=== PATIENT | female | born 1940 | race Caucasian/White ===

== ENCOUNTER 2016-07-14 15:04 | Emergency (ER) | payer MEDICARE, BC ==
[2016-07-14] MEDS ORDERED: DIATRIZOATE MEGLU/DIATRIZO SOD 30 ML BTL ONE (15:48)
[2016-07-14 16:04] LABS: Hemoglobin 14.1 gm/dL (12.5-16.0); Mean Corpuscular Hemoglobin 29.2 pg (27-31); Mean Corpuscular Hgb Conc 32.8 g/dl (32-36); Mean Platelet Volume 9.7 fl (6.0-9.5); Neutrophil # 3.6 K/mm3 (1.3-6.0); Platelet Count 225 K/mm3 (150-450); Red Blood Count 4.83 M/mm3 (4.2-5.4); Red Cell Distribution Width 13.1 % (11.5-14.0); White Blood Count 6.9 K/mm3 (4.0-10.5)
[2016-07-14] MEDS: DIATRIZOATE MEGLU/DIATRIZO SOD 30 ML BTL PO ONE (16:10)
--- OUTSIDE RECORDS SUMMARY | 2016-07-14 16:11 | XMS REPORT | Continuity of Care Document ---
:1940 Author Organization [facility] ([facility]) Address [place] [address] Phone [phone] Care Team Providers Name Role Phone Marga Fontana Primary Care Provider [phone] Source Comments This disclosure is being made pursuant to the Care Everywhere program, applicable federal and state laws, and may not contain all informaitonavailable regarding this patient.[facility] ([facility]) Active Allergies and Adverse Reactions Allergen Noted Date Severity Reactions Comments Sulfadoxine Blisters Current Medications Prescription Sig. Disp. Refills Start Date End Date Status levothyroxine 100 mcg tablet Take 100 mcg by Active mouth every morning before breakfast. HYDROCHLOROTHIAZIDE PO Take by mouth. Active Active Problems No known active problems Social History Tobacco Use Types Packs/Day Years Used Date Never Smoker Last Filed Vital Signs Vital Sign Reading Time Taken Blood Pressure 128/86 09/05/2012 1:35 PM CDT Pulse 92 09/05/2012 1:35 PM CDT Temperature 36.7 C (98.1 F) 09/05/2012 1:35 PM CDT Respiratory Rate 16 09/05/2012 1:35 PM CDT Height - - Weight 96.616 kg (213 lb) 09/05/2012 1:35 PM CDT Body Mass Index - - Oxygen Saturation - - Plan of Care Health Maintenance Due Date Last Done Comments Hepatitis B Vaccine (1 of 3 - Primary Series) 1940 Tdap Vaccine 1949 Lipid Disorder Screening 1956 Td Vaccine 1956 Mammogram 1978 Colonoscopy 05/22/1988 Zoster Vaccine 1998 Osteoporosis Screening (DXA Bone Density) 05/24/2003 Pneumococcal Vaccine (1 of 2 - PCV13) 05/24/2003 Influenza Vaccine: Seasonal (#1) 10/18/2015 Results from Last 3 Months Not on file
[2016-07-14] MEDS ORDERED: ONDANSETRON HCL/PF 2 MG/ML VIAL ONE (16:14)
[2016-07-14] MEDS: NORMAL SALINE 1,000 ML IV ONE (16:23)
[2016-07-14 16:24] LABS: ALT 20 U/L (19-67); AST 23 U/L (0-48); Albumin * 3.9 gm/dl (3.4-5.0); Alkaline Phosphatase * 66 U/L (50-170); Anion Gap 13.2 mmol/L (6.8-13.8); Bilirubin, Total 0.5 mg/dL (0.0-1.1); Blood Urea Nitrogen 16 mg/dL (3-23); Ca. Corrected For Albumin 9.8 mg/dL (8.4-10.2); Carbon Dioxide 27.8 mmol/L (24-32.6); Chloride 101 mmol/L (97-106); Glucose * 102 mg/dL (70-110); Lipase 156 U/L (73-393); Sodium 138 mmol/L (132-142); Total Protein 7.7 gm/dL (6.2-8.2); Troponin I Less than 0.017 ng/ml (0.00-0.10)
[2016-07-14] MEDS: ONDANSETRON HCL/PF 2 MG/ML VIAL IV ONE (16:26)
--- NOTE | 2016-07-14 18:49 | ERNOTE ---
Abdominal HPI - Narrative Date of Service: 07/14/16 - General Chief Complaint: Abdominal Pain Time Seen by Provider: 07/14/16 15:36 Source: patient Exam Limitations: no limitations - Immun/Allergies/Home Medications Immunizatons: IMMUNIZATION HX Immunizations Up to Date Yes History of Influenza Vaccine No Hx Pneumococcal Vaccination Yes Allergies/Adverse Reactions: Allergies Sulfa (Sulfonamide Antibiotics) Allergy (Intermediate, Verified 07/14/16 15:20) Itching Home Medications: HOME MEDICATIONS Acetaminophen [Tylenol] 1,000 mg PO BID 07/14/16 [Last Taken 07/14/16 09:00] Calcium Carbonate [Calcium] 1,200 mg PO DAILY 07/14/16 [Last Taken 07/14/16 09: 00] Calcium Carbonate [Calcium] 600 mg PO HS 07/14/16 [Last Taken 07/13/16 21:00] Cholecalciferol [Vitamin D] 400 unit PO DAILY 07/14/16 [Last Taken 07/14/16 09: 00] Enalapril Maleate [Vasotec] 20 mg PO DAILY 07/14/16 [Last Taken 07/14/16 09:00] Furosemide [Lasix] 20 mg PO DAILY 07/14/16 [Last Taken 07/14/16 09:00] Levothyroxine Sodium [Synthroid] 100 mcg PO DAILY 07/14/16 [Last Taken 07/14/16 09:00] Multivitamin [One Daily Multivitamin] 1 each PO DAILY 07/14/16 [Last Taken 07/14 09:00] - History of Present Illness Narrative: patient presents to the ED for abdominal pain. She relates that she has been having upper abdominal pain for 3 days. She has stuffed peppers 3 days ago and really hasn't been able to eat since then. She feels like things are caught. Upper abdominal pain is cramping and will come in waves, sometins not present other times quite intense. No fever. Has not seen anyone else for this. Decreased flatus. Belching increased. Nothing clearly makes it better or worse. Hasn't been able to eat since then. Timing: constant, other - fluctuating intensity Quality: cramping Activities at Onset: other - eating Modifying Factors - (Improves): Present: other - nothing Modifying Factors - (Worsens): Present: other - nothign Associated Symptoms: Absent: chest pain, diarrhea-gross blood, shortness of breath, swelling/mass in abdomen Prior Abdominal Problems: Present: none Prior Treatment: Absent: recently seen Review of Systems - Review of Systems Constitutional: Absent: fever Respiratory: Absent: shortness of breath Cardiology: Present: See HPI Gastrointestinal/Abdominal: Present: See HPI Genitourinary: Absent: dysuria All Other Systems: All systems neg except as marked - Patient's Past Medical History Patient History - Medical: Hypothyroidism Patient History - Cardiac/Respiratory: Hypertension Patient History - Cancer: No Hx of Cancer Patient History - Surgical Procedures: Hysterectomy Patient History - Other: None LMP (females 10-50): Menopausal - Social History Living Situations: alone Abuse History: No History of abuse Psych History: No pertinent hx Smoking Status: Former smoker Have you smoked in the past 12 months: No Alcohol Use: none Drug Use: none - Immunizations Immunizations Up to Date: Yes Hx Pneumococcal Vaccination: Yes History of Influenza Vaccine: No Physical Exam - Physical Exam General Appearance: Present: alert, no apparent distress Eye Exam: Normal inspection: bilateral, PERRL: bilateral Ears, Nose, Throat: Present: normal ENT inspection Neck: Present: normal inspection Respiratory: Present: no respiratory distress, normal breath sounds, no accessory muscle use, lungs clear Cardiovascular/Chest: Present: regular rate, rhythm Gastrointestinal/Abdominal: Present: other - Decreased breath sounds. Epigastric tenderness to palpation. No guardign or rebound. No peritoneal signs Back Exam: Present: normal range of motion Extremity Exam: Present: other - scar right knee, old, no DVT findings Neurological Exam: Present: alert, normal mood/affect, no motor/sensory deficits Skin Exam: Absent: skin rash ED Progress - Results and Orders Patient's Lab Results:: I have reviewed the patient's lab results. - Vital Signs Patient's Vital Signs:: I have reviewed the patient's vital signs. Vital Signs: Vital Signs 07/14/16 07/14/16 15:10 18:30 Temperature 36.9 C Pulse Rate 87 71 Respiratory 16 18 Rate Blood Pressure 139/93 145/81 O2 Sat by Pulse 95 99 Oximetry - EKG EKG: NSR EKG read: Interp. by me EKG Comments: NSR rate 79. Non-specific ST/T wave changes, no STEMI - CT/Ultrasound CT/Ultrasound Narrative: I reviewed CT images as well as official CT report. - Progress/Reassessment Chief Complaint: Abdominal Pain Progress Note-Subjective: 07/14/16 18:48 Nothing to suggest cardiac etiology. CT abnormality discussed with Dr Acosta who is coming to the ED to evaluate the patient. Discussed findings with patient. UA cancelled. 07/14/16 19:48 Patient seen in the ED by Dr Acosta. he recommends clear liquids and is arranging [facility] follow-up as an outpatient, Departure - Departure Clinical Impression: Abdominal pain Disposition: Home self-care Condition: Stable Additional Instructions: Clear Liquids. Dr Acosta has arranged follow-up for you. Return here for fever , vomiting, increased pain or if your condition worsens or changes in any way. Referrals: Phyllis Abebe MD [Primary Care Provider] -
--- NOTE | 2016-07-14 20:26 | PN ---
Dictated Progress Note - Date and Time Seen: Date: 07/14/16 Time: 20:16 - Progress Note Narrative: Vital Signs - Last Taken Temp 36.9 C 07/14/16 15:10 Pulse 82 07/14/16 19:27 Resp 18 07/14/16 19:27 BP 148/84 07/14/16 19:27 Pulse Ox 98 07/14/16 19:27 Abnormal/Pending Laboratory Last 24 HRS 07/14/16 15:52 MPV 9.7 H Monocytes % 11.1 H HPI: The patient is a 76-year-old female who ate 2 meals of stuffeded peppers on . Since then she's had pain in her lower chest and felt like she had to vomit. She can swallow her saliva and has had some liquids but is afraid to eat. 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 She had no problem drinking the contrast and contrast is passed freely through the remainder of the gastrointestinal tract and she moved her bowels once here in the ER. PMH: She is known she's had a hiatal hernia since she was very young. Apparently she had an upper GI series which demonstrated this. She was told to take Prilosec but she did not because of the expense. She is just watch what she eats. She has had numerous episodes over the years especially after Rice, Pasta , or hamburgers. Usually, though the discomfort only lasts for a day or 2 and then is gone. This is the worst ever. EXAM: Her vital signs have remained normal She is alert and oriented cooperative and a good historian. She is in no distress. She can swallow her saliva and is breathing normally. Her abdomen is obese and protuberant. She has some mild discomfort to palpation in the epigastrium, but her abdomen is soft and no rebound tenderness is elicited. IMAGING: CT scan demonstrates a very large paraesophageal hernia with the majority of the stomach in the chest. There is food material in the stomach but contrast passed through freely. IMPRESSION: Large paraesophageal hernia with retained food. Whether this represents a long- standing phytobezoar with acute exacerbation of fullness, or if this is just a large meal she ate Sunday is unclear. Currently she has no signs of incarceration or strangulation of the hernia, and she does not appear in danger of aspiration. PLAN: Her case was discussed with Dr. Gonzales the cardiothoracic surgeon on the [facility] consult line. He gave me the name of Dr Terrazas to whom the patient could be referred for an outpatient consultation. I will make arrangements to contact that office on Sunday. In the meantime the patient should maintain a clear liquid diet (sheet given). She was given my cell phone number to call should she have questions or problems over the weekend, and she is to contact our office on Sunday to report her progress. She is not inclined to have surgery at this point if she does not have to. Her care was discussed with Dr. Moncada who will arrange discharge Reviewed and electronically signed
[2016-07-14 21:43] VITALS: BP 115/77
== END 2016-07-14 20:28 | disposition home or self-care (01) ==
LOC: ER 15:04
DX: R10.10 Upper abdominal pain, unspecified (principal); Z87.891 Personal history of nicotine dependence; R14.2 Eructation